=== PATIENT | female | born 1940 | race Caucasian/White ===

== ENCOUNTER → 2017-02-03 | Outpatient (CLI) | payer MEDICARE, OTHER ==
[2016-02-20 18:35] VITALS: BP 149/84
[~2017-02-03] MED LIST: FEXO180T81 PO; GABA-585 PO; MELO-156 PO; TIZA4CAP3 PO
== END | disposition home or self-care (01) ==
LOC: LAB 04:32
PROVIDERS: ATTEND Family Medicine
DX: E78.5 Hyperlipidemia, unspecified (principal)
CPT/HCPCS: 80061

== ENCOUNTER 2017-06-05 13:57 | Emergency (ER) | payer MEDICARE, OTHER ==
[~2017-06-05 13:57] MED LIST changes: -MELO-156 PO; +MELO7.5T29 PO
[2017-06-05 14:00] VITALS: BP 146/76
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
[2017-06-05] MEDS ORDERED: HYDROcodone/APAP 5/325MG 1 TAB TABLET PO ONE (15:30)
--- NOTE | 2017-06-05 16:08 | RAD ---
Indication: Left shoulder and left upper humerus pain, status post fall. Axial imaging through the left shoulder was performed without contrast. Sagittal and coronal reformations were also performed. One or more of the following individualized dose reduction techniques were utilized for this examination: 1. Automated exposure control 2. Adjustment of the mA and/or kV according to patient size 3. Use of iterative reconstruction technique There is an acute appearing fracture involving the proximal left humerus. There appears to be some impaction at the fracture site near the junction of the head and neck. Humeral head appears to maintain normal alignment with the glenoid. Glenoid is intact. Coracoid is unremarkable. Acromioclavicular alignment is maintained. The clavicle appears intact. IMPRESSION: Mildly impacted proximal humerus fracture. Electronically signed by: Ramon Mujica MD (06/05/2017 4:05 PM) [facility] [place]
--- NOTE | 2017-06-06 08:25 | RAD ---
Left elbow one view. History: Pain Single view was taken of the left elbow. The head of the radius does not line up with the capitate consistent with a radius dislocation. The ulna appears to line up normally with the distal humerus. Additional views could be of benefit. Impression: 1. Dislocation of the radial head at the elbow.
== END 2017-06-05 17:01 | disposition home or self-care (01) ==
LOC: ER 13:57
DX: S42.202A Unspecified fracture of upper end of left humerus, initial encounter for closed fracture (principal); Z88.2 Allergy status to sulfonamides; Z88.0 Allergy status to penicillin; V29.9XXA Motorcycle rider (driver) (passenger) injured in unspecified traffic accident, initial encounter; Y93.89 Activity, other specified; Y99.8 Other external cause status; Y92.89 Other specified places as the place of occurrence of the external cause
CPT/HCPCS: 73030; 73060; 73070; 73200; 99284-25

== ENCOUNTER 2017-06-17 09:09 | Inpatient (IN) | payer MEDICARE, OTHER ==
[~2017-06-17] VITALS: Ht 157.5 cm; Wt 114.5 kg
--- NOTE | 2017-06-17 09:37 | PHYS DOC ---
Past History Past Medical History: No Pertinent History Past Surgical History: No Surgical History Alcohol Use: Rarely Drug Use: None Adult General Chief Complaint Chief Complaint: COUGH HPI HPI 76-year-old female presenting to the emergency department today with a cough started approximately 3 or 4 days ago. She describes sputum production of yellow and green which she states is changing to white/clear. She denies fevers at home or chills. She has a history of a CVA and humeral fracture. She denies any recent hospitalization or surgery. location lungs. duration intermittent. no alleviating or exacerbating factors. Review of systems is negative for chest pain abdominal pain nausea vomiting. All other review of systems is negative unless otherwise noted in history of present illness. ED course: 76-year-old female presenting to the emergency department with a productive cough. Triage vital signs show the patient to be hypoxic in the mid 80s. The patient is placed on 2 L nasal cannula. Clinical presentation suggestive of a pneumonia. The patient was given IV antibiotics and admitted to the hospital for pneumonia treatment. Review of Systems Review of Systems SEE ABOVE. Allergies Allergies Allergies Coded Allergies Type Severity Reaction Last Updated Verified Penicillins Allergy Intermediate 06/05/17 Yes Sulfa (Sulfonamide Antibiotics) Allergy Intermediate 06/05/17 Yes Physical Exam Physical Exam Constitutional: Well developed, well nourished, no acute distress, non-toxic appearance. HENT: Normocephalic, atraumatic, bilateral external ears normal, oropharynx moist, no oral exudates, nose normal. Eyes: PERRLA, EOMI, conjunctiva normal, no discharge. [] Neck: Normal range of motion, no tenderness, supple, no stridor. Cardiovascular:Heart rate regular rhythm, no murmur Lungs & Thorax: Mild wheezing on the right more than left. No crackles. Abdomen: Bowel sounds normal, soft, no tenderness, no masses, no pulsatile masses. [] Skin: Warm, dry, no erythema, no rash. Back: No tenderness, no CVA tenderness. Extremities: No tenderness, no cyanosis, no clubbing, ROM intact, no edema. [] Neurologic: Alert and oriented X 3, normal motor function, normal sensory function, no focal deficits noted. Psychologic: Affect normal, judgement normal, mood normal. [] EKG EKG [] Radiology/Procedures Radiology/Procedures [] Course & Med Decision Making Course & Med Decision Making Pertinent Labs and Imaging studies reviewed. (See chart for details) [] Dragon Disclaimer Dragon Disclaimer This chart was dictated in whole or in part using Voice Recognition software in a busy, high-work load, and often noisy Emergency Department environment. It may contain unintended and wholly unrecognized errors or omissions. Departure Departure: Impression: Primary Impression: Productive cough Additional Impression: Pneumonia Disposition: 09 ADMITTED INPATIENT Admitting Physician: Judith Bee Condition: STABLE Referrals: PCP,UNKNOWN (PCP) Problem Qualifiers IRVING HOLT MD Jun 17, 2017 09:37
[2017-06-17 09:53] LABS: BASO # 0.1 x10^3/uL (0.0-0.2); BASO % 1 % (0-3); EOS # 0.1 x10^3/uL (0.0-0.7); EOS % 1 % (0-3); HEMATOCRIT 37.7 % (36.0-47.0); HEMOGLOBIN 12.6 g/dL (12.0-15.5); LYMPH # 1.1 x10^3/uL (1.0-4.8); LYMPH % 8 % (24-48); MEAN CORPUSCULAR HEMOGLOBIN 29 pg (25-35); MEAN CORPUSCULAR HGB CONC 33 g/dL (31-37); MEAN CORPUSCULAR VOLUME 86 fL (79-100); MONO # 1.2 x10^3/uL (0.0-1.1); MONO % 9 % (0-9); NEUT # 10.8 x10^3uL (1.8-7.7); NEUT % 82 % (31-73); PLATELET COUNT 193 x10^3/uL (140-400); RED BLOOD COUNT 4.37 x10^6/uL (3.50-5.40); RED CELL DISTRIBUTION WIDTH 14.2 % (11.5-14.5); WHITE BLOOD COUNT 13.2 x10^3/uL (4.0-11.0)
--- NOTE | 2017-06-17 09:57 | RAD ---
Portable chest, 06/17/2017: History: Cough Comparison is made to a study from 06/26/2015. The heart is at the upper limits of normal in size. Moderate patchy pulmonary infiltrates have developed, predominantly in the right upper lobe and both lung bases. The pulmonary vascularity appears to be within normal limits. There is no evidence of pleural fluid. Postsurgical changes are again noted in the lower cervical spine and at the right shoulder. IMPRESSION: Patchy bilateral pulmonary infiltrates have developed suggesting pneumonia.
[2017-06-17] MEDS ORDERED: MORPHINE SULFATE 2 MG/ML DISP.SYRIN. IV PRN (10:00)
[2017-06-17] MEDS ORDERED: IPRATRPIUM/ALBUTEROL 0.5/2.5MG 3 ML NEBU. NEB ONE (10:00)
[2017-06-17] MEDS ORDERED: ONDANSETRON PF 4 MG/2 ML VIAL. IV PRN (10:00)
[2017-06-17 10:07] LABS: ALBUMIN 2.7 g/dL (3.4-5.0); CALCIUM 8.9 mg/dL (8.5-10.1); CREATININE 0.9 mg/dL (0.6-1.0); DIRECT BILIRUBIN 0.9 mg/dL (0.0-0.2); GFR 60.6; POTASSIUM 3.5 mmol/L (3.5-5.1); TOTAL BILIRUBIN 1.6 mg/dL (0.2-1.0); TOTAL PROTEIN 7.2 g/dL (6.4-8.2)
[2017-06-17] MEDS ORDERED: IV NORMAL SALINE 500ML 500 ML IV ONE (10:15)
[2017-06-17 11:00] VITALS: BP 141/88
[2017-06-17] MEDS ORDERED: TIZA4TAB PO (12:35)
[2017-06-17] MEDS ORDERED: ASPI-612 PO (12:35)
[2017-06-17] MEDS ORDERED: IBUP400T18 PO (12:35)
[2017-06-17] MEDS ORDERED: PRAV20TA PO (12:35)
[2017-06-17] MEDS ORDERED: GUAI237L83 PO (12:35)
[2017-06-17] MEDS ORDERED: TRAZ50TA15 PO (12:35)
[2017-06-17] MEDS ORDERED: GUAI600T47 PO (12:35)
[2017-06-17] MEDS ORDERED: ACET-704 PO (12:35)
[2017-06-17] MEDS ORDERED: HYDR-971 PO (12:35)
[2017-06-17] MEDS ORDERED: TOLN113. TP (12:35)
[2017-06-17] MEDS ORDERED: FAMO-63 PO (12:35)
[2017-06-17] MEDS ORDERED: [UNRECOGNIZED DRUG - CODE] TP (12:35)
[2017-06-17] MEDS ORDERED: IBUP800T19 PO (12:35)
[2017-06-17] MEDS ORDERED: HYDR-2762 PO (12:35)
[2017-06-17] MEDS ORDERED: DOCU100C28 PO (12:35)
[2017-06-17] MEDS ORDERED: MELA3TAB2 PO (12:35)
[2017-06-17 13:25] LABS: BILIRUBIN,URINE NEG (NEG); CLARITY,URINE HAZY; COLOR,URINE AMBER; GLUCOSE,URINE NEG (NEG); NITRITE,URINE NEG (NEG); UROBILINOGEN,URINE 1 mg/dL (0.2 mg/dL)
[2017-06-17 13:26] LABS: BACTERIA,URINE FEW /HPF (0-FEW); SQUAMOUS EPITHELIAL CELL,UR FEW /LPF
[2017-06-17] MEDS: IPRATRPIUM/ALBUTEROL 0.5/2.5MG 3 ML NEBU. NEB SCH ×3 (13:45→20:44)
[2017-06-17] MEDS ORDERED: ENOXAPARIN 30 MG/0.3 ML DISP.SYRIN. SQ SCH (14:00)
[2017-06-17] MEDS: guaiFENesin DM 600/30MG 1 TAB TAB.ER.12H PO SCH ×2 (14:30→21:11)
[2017-06-17 15:47] VITALS: BP 157/78
[2017-06-17] MEDS: LIDOCAINE (700MG/PATCH) PATCH. TD SCH (17:54)
[2017-06-17] MEDS ORDERED: IBUPROFEN 800 MG TABLET. PO PRN (19:15)
[2017-06-17] MEDS ORDERED: tiZANidine 4 MG TABLET. PO PRN (19:15)
[2017-06-17] MEDS ORDERED: IBUPROFEN 400 MG TABLET. PO PRN (19:15)
[2017-06-17] MEDS ORDERED: TOLNAFTATE 1% TOPICAL SPRAY POWDER 133GM CAN. TP PRN (19:15)
[2017-06-17] MEDS ORDERED: HYDROcodone/APAP 5/325MG 1 TAB TABLET PO PRN ×2 (19:15)
[2017-06-17] MEDS ORDERED: METHYL SALICYLATE/MENTHOL TOPICAL OINTMENT 29GM TUBE. TP PRN (19:45)
[2017-06-17] MEDS ORDERED: guaiFENesin DM 200MG/20MG 10 ML SYRUP PO PRN (19:45)
[2017-06-17] MEDS ORDERED: HYDROcodone/APAP 7.5/325MG 1 TAB TABLET PO SCH (20:00)
[2017-06-17 21:10] VITALS: BP 135/76
[2017-06-17] MEDS: MELATONIN 3 MG TABLET PO SCH (21:11)
[2017-06-17] MEDS: traZODone 50 MG TABLET. PO SCH (21:11)
[2017-06-17] MEDS: PRAVASTATIN 20 MG TABLET. PO SCH (21:12)
[2017-06-17] MEDS: ACETAMINOPHEN/CODEINE 300/30MG TABLET PO PRN (21:30)
[2017-06-18 00:02] VITALS: BP 126/62
--- NOTE | 2017-06-18 00:13 | ACF ---
Admission Criteria Forms PNEUMONIA, COMMUNITY ACQUIRED Clinical Indications for Admission to Inpatient Care (Place 'X' for any and all applicable criteria): Admission to inpatient status for two midnights or more is indicated for ANY ONE of the following (1)(2)(3): [ ]I. Hypoxia [ ]II. Hemodynamic instability [ ]III. Altered mental status that is severe or persistent [ ]IV. Dehydration that is severe or persistent. [ ]V. Bacteremia [ ]. Moderate-risk or high-risk category patients (Pneumonia Severity Index ( PSI) class IV or V, or CURB-65 score of 3 or greater). [ ]VII. Intermediate-risk category patients (e.g., PSI class III or CURB-65 score 2) who do not improve with outpatient and observation care treatment [ ]VIII. Outpatient treatment failure as indicated by 1 or more of the following(9): [ ]a) Failure to respond to antibiotic (eg, resistant organism) [ ]b) Clinically significant adverse effects from medication (eg, vomiting) [ ]c) Complications of pneumonia (eg, empyema, bacteremia) [ ]d) Significant worsening of comorbid cond necessitating inpatient care (eg, chronic heart failure) [x]IX. Appropriate diagnostic testing and treatment unavailable in outpatient or recovery facility (eg, testing or infection control measures unavailable) [ ]X. Respiratory finding (eg. tachypnea) that do not respond to outpatient observation care treatment [ ]XI. Complicated pleural effusions (eg, emphysema, exudative, loculated) [ ]XII. Immunocompromised patients (e.g., AIDS, chronic steroid use) at moderate or high risk based on clinical evaluation. Extended stay beyond goal length of stay may be needed for (20) [ ]a) Unclear diagnosis [ ]b) Pleural disease [ ]c) Severe pneumonia or treatment failure [ ]d) Respiratory failure [ ]e) New onset hyponatremia (serum Na concentration less than 135 mEq/L(mmol/ L) [ ]f) Clinically significant comorbid illness (eg, heart failure, atrial fibrillation with rapid heart rate, alcohol withdrawal, renal insufficiency)(34)(35) [ ]g) Comorbid acute exacerbation of COPD(36) [ ]h) Concomitant diagnosis of malignancy [ ]i) Concomitant altered mental status [ ]j) Culture-identified Gram-negative or antibiotic-resistant organism (eg, Pseudomonas, methicillin-resistant Staphylococcus aureus MRSA)(30) [ ]k) Healthcare-associated pneumonia (36) The original [facility] content created by [facility] has been revised. The portions of the content which have been revised are identified through the use of italic text, and [facility] has neither reviewed nor approved the modified material. All other unmodified content is copyright [facility]. Please see references footnoted in the original [facility] edition 2015 Admission Criteria Met?: Yes KVNG LILLY Jun 18, 2017 00:13
[2017-06-18 05:23] VITALS: BP 140/67
[2017-06-18] MEDS: IPRATRPIUM/ALBUTEROL 0.5/2.5MG 3 ML NEBU. NEB SCH ×4 (05:24→20:34)
[2017-06-18 06:03] LABS: BASO # 0.1 x10^3/uL (0.0-0.2); BASO % 1 % (0-3); EOS # 0.1 x10^3/uL (0.0-0.7); EOS % 1 % (0-3); HEMATOCRIT 36.4 % (36.0-47.0); LYMPH # 1.4 x10^3/uL (1.0-4.8); LYMPH % 13 % (24-48); MEAN CORPUSCULAR HEMOGLOBIN 28 pg (25-35); MEAN CORPUSCULAR HGB CONC 33 g/dL (31-37); MEAN CORPUSCULAR VOLUME 86 fL (79-100); MONO % 9 % (0-9); NEUT # 8.8 x10^3uL (1.8-7.7); NEUT % 77 % (31-73); PLATELET COUNT 202 x10^3/uL (140-400); RED BLOOD COUNT 4.24 x10^6/uL (3.50-5.40); RED CELL DISTRIBUTION WIDTH 13.9 % (11.5-14.5); WHITE BLOOD COUNT 11.4 x10^3/uL (4.0-11.0)
[2017-06-18 06:16] LABS: CALCIUM 8.6 mg/dL (8.5-10.1); CREATININE 0.8 mg/dL (0.6-1.0); GFR 69.4; POTASSIUM 3.3 mmol/L (3.5-5.1)
[2017-06-18] MEDS: ACETAMINOPHEN/CODEINE 300/30MG TABLET PO PRN ×3 (06:25→21:21)
[2017-06-18] MEDS ORDERED: POTASSIUM CHLORIDE 20 MEQ TABLET.ER. PO ONE (06:45)
[2017-06-18] MEDS: LIDOCAINE (700MG/PATCH) PATCH. TD SCH (08:38)
[2017-06-18] MEDS: ASPIRIN ENTERIC COATED 81 MG TABLET.DR. PO SCH (08:39)
[2017-06-18] MEDS: guaiFENesin DM 600/30MG 1 TAB TAB.ER.12H PO SCH ×2 (08:39→21:20)
[2017-06-18] MEDS: FAMOTIDINE 20 MG TABLET PO SCH (08:39)
[2017-06-18 11:03] VITALS: BP 122/80
--- NOTE | 2017-06-18 12:28 | HP ---
ADMIT DATE: 06/17/2017 REASON FOR ADMISSION: Cough and pneumonia. 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 She presented to the Emergency Room complaining of a 5 to 7 day history of cough. She was [facility] to [facility] and was sent over to the hospital. She reports green sputum production and continue problem with cough. Does not know if she has had fever. PAST MEDICAL HISTORY: She has a history of a right humeral fracture, currently has a left, I believe scapular fracture, morbid obesity, hyperlipidemia, and history of CVA. ALLERGIES: PENICILLIN and SULFA. MEDICATIONS: Reviewed and are available on the MAR. 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 She quit smoking 20 years ago. No alcohol. REVIEW OF SYSTEMS: Positive for shortness of breath with exertion, difficulty ambulating, cough, right-sided pain, denies chest pain, sore throat, does not feel feverish. OBJECTIVE: VITAL SIGNS: T-max yesterday was 101.1, blood pressure 157/78, pulse 88, respirations 20, pulse ox 95% on 2 liters. Height 62 inches, weight 250 pounds with a BMI of 45. GENERAL: A 76-year-old in moderate distress. Her color is pale. Her throat with postnasal drip. She has congestion. NECK: Supple. LUNGS: With diffuse wheezes. She has a severe cough producing green sputum. CARDIOVASCULAR: Regular rhythm and rate. ABDOMEN: Soft, nontender, and obese. EXTREMITIES: Without edema. MUSCULOSKELETAL: Right-sided rib tenderness, also has the left arm in a brace. Gait unsteady. LABORATORY DATA: White blood cell count 13.2, 82% neutrophils, no bands. Chemistry: Bilirubin was slightly elevated at 1.6, direct bilirubin 0.9, slightly elevated AST and alkaline phosphatase is 201. BMP slightly elevated at 691. Albumin 2.7. Urinalysis, 1-4 white cells. MRSA screen is negative. Chest x-ray, bilateral pulmonary infiltrates. ASSESSMENT: 1. Bilateral pneumonia. 2. Sepsis with pneumonia. 3. Fever. 4. Morbid obesity. 5. Impaired mobility. 6. Right-sided rib pain. 7. Hyperlipidemia. 8. Elevated bilirubin, questionable etiology. PLAN: IV antibiotics, cough medicine, breathing treatments, PT, OT. AKRINE AMADO DO DR: [place] JOB#: [id number] / [id number]
[2017-06-18] MEDS: ENOXAPARIN 40 MG/0.4 ML DISP.SYRIN. SQ SCH (13:52)
[2017-06-18] MEDS ORDERED: METHYL SALICYLATE/MENTHOL TOPICAL OINTMENT 29GM TUBE. TP PRN (14:41)
[2017-06-18 15:40] VITALS: BP 139/61
[2017-06-18 19:51] VITALS: BP 180/78
[2017-06-18] MEDS: MELATONIN 3 MG TABLET PO SCH (21:21)
[2017-06-18] MEDS: PRAVASTATIN 20 MG TABLET. PO SCH (21:21)
[2017-06-18] MEDS: traZODone 50 MG TABLET. PO SCH (21:21)
--- NOTE | 2017-06-18 23:29 | PN ---
DATE: 06/18/2017 SUBJECTIVE: A 76-year-old female who was admitted with bilateral pneumonia with sepsis and pain management. She is actually a little bit better today. She is sitting up in the chair, eating her breakfast and overall breathing better, still has a bad cough, but doing better. OBJECTIVE: VITAL SIGNS: Blood pressure 122/80, respirations 20, pulse 66, temperature 98.2, pulse ox 94% on room air. She did have a temperature spike yesterday afternoon of 101.1. GENERAL: Color is better, still pale. NECK: Supple. LUNGS: With better air movement and pretty much clear to auscultation. CARDIOVASCULAR: Regular rhythm and rate. ABDOMEN: Soft, nontender. EXTREMITIES: Without edema. LABORATORY DATA: White count 11.2, potassium 3.3 today. PLAN: Replace potassium. Continue IV antibiotics, PT, OT orders. KARINE AMADO DO DR: RADHA/carmen JOB#: [id number] / [id number]
[2017-06-19] MEDS: HYDROcodone/CHLORPHEN POLIS 5 ML SUS.ER.12H PO PRN (00:49)
[2017-06-19 05:20] VITALS: BP 129/75
[2017-06-19] MEDS: IPRATRPIUM/ALBUTEROL 0.5/2.5MG 3 ML NEBU. NEB SCH ×4 (05:48→20:43)
[2017-06-19 06:12] LABS: BASO # 0.1 x10^3/uL (0.0-0.2); BASO % 1 % (0-3); EOS # 0.2 x10^3/uL (0.0-0.7); EOS % 2 % (0-3); HEMATOCRIT 34.4 % (36.0-47.0); HEMOGLOBIN 11.6 g/dL (12.0-15.5); LYMPH # 1.4 x10^3/uL (1.0-4.8); LYMPH % 14 % (24-48); MEAN CORPUSCULAR HEMOGLOBIN 29 pg (25-35); MEAN CORPUSCULAR HGB CONC 34 g/dL (31-37); MEAN CORPUSCULAR VOLUME 86 fL (79-100); MONO # 0.9 x10^3/uL (0.0-1.1); MONO % 9 % (0-9); NEUT # 7.4 x10^3uL (1.8-7.7); NEUT % 74 % (31-73); PLATELET COUNT 205 x10^3/uL (140-400); RED BLOOD COUNT 3.99 x10^6/uL (3.50-5.40); RED CELL DISTRIBUTION WIDTH 14.5 % (11.5-14.5)
[2017-06-19 06:23] LABS: ALBUMIN 2.2 g/dL (3.4-5.0); ALBUMIN/GLOBULIN RATIO 0.6 (1.0-1.7); CALCIUM 8.5 mg/dL (8.5-10.1); CREATININE 0.8 mg/dL (0.6-1.0); GFR 69.4; POTASSIUM 3.5 mmol/L (3.5-5.1); TOTAL BILIRUBIN 0.8 mg/dL (0.2-1.0); TOTAL PROTEIN 6.2 g/dL (6.4-8.2)
[2017-06-19] MEDS: ACETAMINOPHEN/CODEINE 300/30MG TABLET PO PRN ×3 (07:33→20:28)
--- NOTE | 2017-06-19 08:31 | RAD ---
Portable AP upright view CXR: Clinical indications: Follow-up of pneumonia. Chest pain. Comparison: June 17, 2017. Findings: Again seen is a consolidative round lung infiltrate within the right upper lobe which is stable. Right lung base infiltrate or atelectasis seen previously has resolved. Left lung base and left midlung zone infiltrate are stable. There is mild blunting of the right costophrenic angle consistent with a small pleural effusion which is stable. No pneumothorax is evident. The heart size and mediastinum and pulmonary vasculature are stable. Impression: Bilateral lung infiltrates..
[2017-06-19] MEDS: LIDOCAINE (700MG/PATCH) PATCH. TD SCH (09:00)
[2017-06-19] MEDS: ASPIRIN ENTERIC COATED 81 MG TABLET.DR. PO SCH (09:46)
[2017-06-19] MEDS: guaiFENesin DM 600/30MG 1 TAB TAB.ER.12H PO SCH ×2 (09:46→20:28)
[2017-06-19] MEDS: FAMOTIDINE 20 MG TABLET PO SCH (09:46)
[2017-06-19 11:14] VITALS: BP 124/63
[2017-06-19] MEDS ORDERED: POTASSIUM CHLORIDE 20 MEQ TABLET.ER. PO ONE (12:10)
[2017-06-19] MEDS: ENOXAPARIN 40 MG/0.4 ML DISP.SYRIN. SQ SCH (14:48)
[2017-06-19 15:04] VITALS: BP 112/83
[2017-06-19] MEDS: tiZANidine 4 MG TABLET. PO PRN (17:55)
--- NOTE | 2017-06-19 18:34 | PN ---
DATE: 06/19/2017 PROBLEMS: 1. Bilateral pneumonia, improving. 2. Sepsis with pneumonia. 3. Fever, resolved. 4. Morbid obesity. 5. Hypokalemia. 6. Impaired mobility. 7. Transaminitis. 8. DVT prophylaxis. 9. Elevated bilirubin, which has resolved. 10. Right-sided rib pain, improving. 11. Severe protein malnutrition. SUBJECTIVE: A 76-year-old female admitted for fever and found to have pneumonia and being treated for the above problems. This also would include left scapular fracture and severe impaired mobility. She is actually doing better today. Cough is less wet, producing less sputum. Gram stain was positive for gram-positive cocci and gram-negative cocci. She is still mildly hypoxic, but has been able to get her sats up to 97% on 2 liters, but then we will go down at 92. OBJECTIVE: VITAL SIGNS: Temperature 98.5, pulse 80, respirations 20, blood pressure 129/75, pulse ox 97% on 2 liters. GENERAL: Color has improved. She is less labored in her breathing. HEENT: Tongue was moist. NECK: Supple. LUNGS: With still congested sounds and some wheezing. CARDIOVASCULAR: Regular rhythm and rate. EXTREMITIES: With a little bit about 1+ edema. She is up 2 pounds. LABORATORY DATA: CBC: White count is down to normal. She has slight transaminitis, albumin is 2.2. PLAN: We will add some liquid nutrition and will move towards discharge. KARINE AMADO DO DR: RADHA/carmen JOB#: [id number] / [id number]
[2017-06-19] MEDS: traZODone 50 MG TABLET. PO SCH (20:27)
[2017-06-19] MEDS: MELATONIN 3 MG TABLET PO SCH (20:28)
[2017-06-19] MEDS: PRAVASTATIN 20 MG TABLET. PO SCH (20:28)
[2017-06-19 20:32] VITALS: BP 100/60
[2017-06-20] MEDS: HYDROcodone/CHLORPHEN POLIS 5 ML SUS.ER.12H PO PRN ×2 (02:18→14:20)
[2017-06-20 03:23] VITALS: BP 102/54
[2017-06-20] MEDS: IPRATRPIUM/ALBUTEROL 0.5/2.5MG 3 ML NEBU. NEB SCH ×4 (05:25→20:44)
[2017-06-20] MEDS: FAMOTIDINE 20 MG TABLET PO SCH (07:59)
[2017-06-20] MEDS: guaiFENesin DM 600/30MG 1 TAB TAB.ER.12H PO SCH ×2 (07:59→20:08)
[2017-06-20] MEDS: ASPIRIN ENTERIC COATED 81 MG TABLET.DR. PO SCH (07:59)
[2017-06-20] MEDS: ACETAMINOPHEN/CODEINE 300/30MG TABLET PO PRN ×2 (08:00→20:09)
[2017-06-20] MEDS: LIDOCAINE (700MG/PATCH) PATCH. TD SCH ×2 (08:02→12:05)
[2017-06-20 09:00] VITALS: BP 140/107
[2017-06-20 11:16] VITALS: BP 121/69
[2017-06-20] MEDS ORDERED: LIDOCAINE 5% TOPICAL OINTMENT 35GM TUBE. TP ONE (12:15)
[2017-06-20] MEDS ORDERED: LIDOCAINE (700MG/PATCH) PATCH. TD ONE (12:30)
[2017-06-20 13:32] LABS: BASO # 0.1 x10^3/uL (0.0-0.2); BASO % 1 % (0-3); EOS # 0.2 x10^3/uL (0.0-0.7); EOS % 2 % (0-3); HEMATOCRIT 38.2 % (36.0-47.0); HEMOGLOBIN 12.7 g/dL (12.0-15.5); LYMPH # 1.2 x10^3/uL (1.0-4.8); LYMPH % 12 % (24-48); MEAN CORPUSCULAR HEMOGLOBIN 29 pg (25-35); MEAN CORPUSCULAR HGB CONC 33 g/dL (31-37); MEAN CORPUSCULAR VOLUME 87 fL (79-100); MONO # 0.7 x10^3/uL (0.0-1.1); MONO % 7 % (0-9); NEUT # 7.9 x10^3uL (1.8-7.7); NEUT % 78 % (31-73); PLATELET COUNT 241 x10^3/uL (140-400); RED BLOOD COUNT 4.37 x10^6/uL (3.50-5.40); WHITE BLOOD COUNT 10.1 x10^3/uL (4.0-11.0)
[2017-06-20 13:40] LABS: ALBUMIN 2.4 g/dL (3.4-5.0); ALBUMIN/GLOBULIN RATIO 0.5 (1.0-1.7); CALCIUM 8.7 mg/dL (8.5-10.1); CREATININE 0.9 mg/dL (0.6-1.0); GFR 60.6; MAGNESIUM 1.9 mg/dL (1.8-2.4); POTASSIUM 3.7 mmol/L (3.5-5.1); TOTAL BILIRUBIN 0.6 mg/dL (0.2-1.0); TOTAL PROTEIN 6.9 g/dL (6.4-8.2)
[2017-06-20] MEDS: ENOXAPARIN 40 MG/0.4 ML DISP.SYRIN. SQ SCH (14:20)
[2017-06-20 14:51] VITALS: BP 172/74
[2017-06-20 19:54] VITALS: BP 130/58
[2017-06-20] MEDS: traZODone 50 MG TABLET. PO SCH (20:08)
[2017-06-20] MEDS: MELATONIN 3 MG TABLET PO SCH (20:09)
[2017-06-20] MEDS: DOCUSATE SODIUM 100 MG CAPSULE PO PRN (20:09)
[2017-06-20] MEDS: PRAVASTATIN 20 MG TABLET. PO SCH (20:09)
--- NOTE | 2017-06-20 22:08 | PN ---
DATE: 06/20/2017 PROBLEMS: 1. Bilateral pneumonia. 2. Sepsis with pneumonia. 3. Fever, resolved. 4. Morbid obesity. 5. Hypokalemia. 6. Impaired mobility. 7. Transaminitis. 8. DVT prophylaxis. 9. Elevated bilirubin, which has resolved. 10. Right-sided rib tip pain continues. 11. Severe protein malnutrition. OBJECTIVE: A little bit better today, but has a long way to go. She does not want to be discharged back to . Actually, she lives on the wellness side. She really does not want to go to rehabilitation, but I cannot see that she would be able to go back to independent living at this point. She is getting up and ambulating to the bathroom. She has a hard time because of the left broken scapular or shoulder. I am not sure what exactly she had broken, but she is still in a sling. OBJECTIVE: VITAL SIGNS: Blood pressure 121/69, respirations 20, pulse 84, temperature 97, O2 sat is 92% on 2 liters. She has been as high as 97% on 2 liters yesterday evening. GENERAL: Color is still pale, but she is at rest in no distress. HEENT: Her tongue was moist. LUNGS: Moving air better some crackles on the left lower lobe. CARDIOVASCULAR: Regular rhythm and rate. draw furnace tender on the right side. EXTREMITIES: With 2-3+ edema. This is chronic. Weight is up about 3 pounds. LABORATORY DATA: Pending. PLAN: Continue antibiotics. Recheck chest x-ray tomorrow. Try to discharge tomorrow, will need rehabilitation. KARINE AMADO DO DR: RADHA/carmen JOB#: [id number] / [id number]
[2017-06-20 23:30] VITALS: BP 128/69
[2017-06-21] MEDS: IPRATRPIUM/ALBUTEROL 0.5/2.5MG 3 ML NEBU. NEB SCH ×4 (05:38→20:19)
[2017-06-21] MEDS: ACETAMINOPHEN/CODEINE 300/30MG TABLET PO PRN ×2 (05:44→17:29)
[2017-06-21 05:48] VITALS: BP 122/61
[2017-06-21] MEDS: tiZANidine 4 MG TABLET. PO PRN ×2 (06:03→17:41)
[2017-06-21 06:25] LABS: BASO # 0.1 x10^3/uL (0.0-0.2); BASO % 1 % (0-3); EOS # 0.3 x10^3/uL (0.0-0.7); EOS % 3 % (0-3); HEMATOCRIT 35.8 % (36.0-47.0); LYMPH # 1.6 x10^3/uL (1.0-4.8); LYMPH % 17 % (24-48); MEAN CORPUSCULAR HEMOGLOBIN 29 pg (25-35); MEAN CORPUSCULAR HGB CONC 34 g/dL (31-37); MEAN CORPUSCULAR VOLUME 87 fL (79-100); MONO # 0.8 x10^3/uL (0.0-1.1); MONO % 9 % (0-9); NEUT # 6.2 x10^3uL (1.8-7.7); NEUT % 70 % (31-73); PLATELET COUNT 229 x10^3/uL (140-400); RED BLOOD COUNT 4.14 x10^6/uL (3.50-5.40); RED CELL DISTRIBUTION WIDTH 14.5 % (11.5-14.5); WHITE BLOOD COUNT 8.9 x10^3/uL (4.0-11.0)
[2017-06-21 06:26] LABS: CALCIUM 8.3 mg/dL (8.5-10.1); CREATININE 0.7 mg/dL (0.6-1.0); GFR 80.7; POTASSIUM 3.6 mmol/L (3.5-5.1)
[2017-06-21] MEDS: ASPIRIN ENTERIC COATED 81 MG TABLET.DR. PO SCH (08:59)
[2017-06-21] MEDS: FAMOTIDINE 20 MG TABLET PO SCH (08:59)
[2017-06-21] MEDS: guaiFENesin DM 600/30MG 1 TAB TAB.ER.12H PO SCH ×2 (08:59→20:38)
[2017-06-21] MEDS: LIDOCAINE (700MG/PATCH) PATCH. TD SCH (09:03)
[2017-06-21 11:27] VITALS: BP 122/88
[2017-06-21] MEDS: BACITRACIN TOPICAL OINT 28GM TUBE. TP SCH ×2 (12:00→21:00)
[2017-06-21 15:00] VITALS: BP 134/78
[2017-06-21] MEDS: ENOXAPARIN 40 MG/0.4 ML DISP.SYRIN. SQ SCH (17:28)
[2017-06-21 19:10] VITALS: BP 106/64
[2017-06-21] MEDS: PRAVASTATIN 20 MG TABLET. PO SCH (20:38)
[2017-06-21] MEDS: traZODone 50 MG TABLET. PO SCH (20:38)
[2017-06-21] MEDS: MELATONIN 3 MG TABLET PO SCH (20:38)
[2017-06-21 22:01] VITALS: BP 106/64
--- NOTE | 2017-06-21 23:33 | PN ---
DATE: 06/21/2017 SUBJECTIVE: The patient is sitting comfortably in her recliner, complaining of severe left-sided chest pain that is stabbing in nature, worse by coughing and taking deep breath. She was admitted from House with recurrent bouts of cough that has been going on for the last 5 or 7 days. She has also greenish sputum and was evaluated and was found to have bilateral lung infiltrate and was started on IV Levaquin. She apparently has had right middle cerebral artery territory infarct with left-sided hemiplegia and she fell about 2 weeks ago and broke her right humerus for which she is on a sling. Apparently, she saw and the plan was to treat this fracture conservatively without any surgical intervention. PHYSICAL EXAMINATION: GENERAL: When I saw her today, she looked well and was clearly in no apparent respiratory distress, pale, but no jaundice, cyanosis or thyromegaly. No jugular venous distention. No limb edema. VITAL SIGNS: Her heart rate was 62, blood pressure was 122/88, temperature was 97.6, respiratory rate was 16 and oxygen saturation was 100% on 2 liters of oxygen. HEAD, EYES, EARS, NOSE AND THROAT: Showed normocephalic, atraumatic. NECK: Supple. HEART: Showed normal first and second heart sounds with no gallop, rub or murmur. CHEST: Clear to auscultation. No crepitation or rhonchi. ABDOMEN: Distended, soft, nontender. No guarding or rigidity. No organomegaly. All hernial orifices are intact. Bowel sounds are normal. NEUROLOGIC: She was awake, alert, responding appropriately. All cranial nerves are intact. She has left-sided hemiplegia. She has also left humeral fracture and her left upper extremity is in a sling. She walks with a dry wood cane. LABORATORY DATA: Her lab work this morning showed that her white cell count is down to 8900, hemoglobin 12, hematocrit 36, MCV 87 and platelet count 229,000. Her chemistry showed a serum sodium 141, potassium 2.6, chloride 104, bicarbonate 33, anion gap of 4, BUN 16, creatinine 0.7, estimated GFR was 80 mL per minute. Her glucose was 123, calcium was 8.3, magnesium 2. Her AST, ALT, and alkaline phosphatase are all elevated. Her total protein was 6.9, albumin was 2.4. Urinalysis was essentially unremarkable. Her nasal screen for MRSA PCR was negative. ASSESSMENT: 1. Bilateral lung infiltrates. 2. Sepsis with fever that has resolved. 3. Morbid obesity. 4. Impaired mobility. 5. Right-sided rib fracture. 6. New onset left-sided rib fracture. PLAN: My plan is to do the left-sided rib views and continue with IV antibiotic. She will be discharged back to continue the antibiotic orally and to start the process of physical and occupational therapy. MONAE GUTIERREZ MD DR: GÉNESIS/carmen JOB#: [id number] / [id number]
[2017-06-22] MEDS: tiZANidine 4 MG TABLET. PO PRN (00:33)
[2017-06-22 00:36] VITALS: BP 119/82
[2017-06-22] MEDS: ACETAMINOPHEN/CODEINE 300/30MG TABLET PO PRN (01:11)
[2017-06-22] MEDS: IPRATRPIUM/ALBUTEROL 0.5/2.5MG 3 ML NEBU. NEB SCH ×2 (05:28→11:35)
[2017-06-22 05:57] VITALS: BP 112/57
[2017-06-22 06:07] LABS: ALBUMIN 2.1 g/dL (3.4-5.0); ALBUMIN/GLOBULIN RATIO 0.5 (1.0-1.7); CALCIUM 8.2 mg/dL (8.5-10.1); CREATININE 0.8 mg/dL (0.6-1.0); GFR 69.2; POTASSIUM 3.7 mmol/L (3.5-5.1); TOTAL BILIRUBIN 0.4 mg/dL (0.2-1.0); TOTAL PROTEIN 6.2 g/dL (6.4-8.2)
--- NOTE | 2017-06-22 07:22 | RAD ---
Bilateral RIBS, 06/21/2017: History: Rib pain The images are of suboptimal quality due to the patient's size and difficulties in patient positioning. No rib fracture is identified. Patchy bilateral pulmonary infiltrates are unchanged since 06/19/2017. There is moderate spurring in the spine. IMPRESSION: 1. No acute rib abnormality is detected. 2. Unchanged patchy bilateral pulmonary infiltrates.
[2017-06-22] MEDS: ASPIRIN ENTERIC COATED 81 MG TABLET.DR. PO SCH (08:09)
[2017-06-22] MEDS: FAMOTIDINE 20 MG TABLET PO SCH (08:16)
[2017-06-22] MEDS: guaiFENesin DM 600/30MG 1 TAB TAB.ER.12H PO SCH (08:17)
[2017-06-22] MEDS: LIDOCAINE (700MG/PATCH) PATCH. TD SCH (08:20)
[2017-06-22] MEDS: BACITRACIN TOPICAL OINT 28GM TUBE. TP SCH (08:33)
[2017-06-22] MEDS: DOCUSATE SODIUM 100 MG CAPSULE PO PRN (08:33)
[2017-06-22] MEDS: HYDROcodone/CHLORPHEN POLIS 5 ML SUS.ER.12H PO PRN (10:51)
[2017-06-22] MEDS ORDERED: LEVO500T59 PO (12:52)
[2017-06-22 13:00] VITALS: BP 152/66
--- NOTE | 2017-06-22 14:25 | DS ---
DATE OF DISCHARGE: 06/22/2017 HOSPITAL COURSE: The patient is a 77-year-old female patient who was admitted on 06/17/2017 with cough with pneumonia. X-ray showed that she has bilateral lung infiltrates. She is apparently allergic to PENICILLIN and SULFA DRUGS and was started on Levaquin and she did actually well. She continued to have what seemed to be pleuritic chest pain, especially when she coughs it takes a deep breath; however, clinically she is afebrile, hemodynamically stable. [place] [address]779 to 8900. Has been up and about walking with her cane and a decision was made to discharge her back to the to continue her oral antibiotics and to start the process of physical and occupational therapy. PHYSICAL EXAMINATION: GENERAL: When I saw her today, she was sitting slightly propped up in her chair, in no apparent respiratory distress. She was pale, but no jaundice, cyanosis, or thyromegaly. No jugular venous distention. No limb edema. VITAL SIGNS: Her heart rate was 66, blood pressure 112/57, temperature was 98.7, respiratory rate was 20, and oxygen saturation was 94% on 1 liter of oxygen by nasal cannula. HEAD, EYES, EARS, NOSE AND THROAT: Showed normocephalic, atraumatic. NECK: Supple. HEART: Showed normal first and second sounds. No gallop, rub or murmur. CHEST: Clear to auscultation. No crepitation or rhonchi. ABDOMEN: Distended, soft, nontender. NEUROLOGIC: She is awake, alert, responding appropriately. Cranial nerves intact. She has left-sided hemiplegia and in fact she has left side hemiparesis. EXTREMITIES: She has also fracture of the left humerus and her left upper extremity is in a sling. Her intake over the last 24 hours was 1500, output was 615. LABORATORY DATA: Her most lab work showed a white cell count of 8900, hemoglobin 12, hematocrit 36, MCV 87 and platelet count 229,000 with normal manual differential. As of this morning, her serum sodium was 139, potassium 3.7, chloride 103, bicarbonate 31, and anion gap of 5. BUN 16, creatinine 0.8, estimated GFR was 69 mL per minute. Her glucose 156, calcium was 8.2. Total bilirubin is normal. AST, ALT, alkaline phosphatase were slightly elevated, but trending down. Her total protein was 6.2, albumin 2.1. As far as her sputum culture, did not show any growth. I did order a left-sided rib view, but it showed that although the images of suboptimal in quality due to the patient's size and difficulties in the patient positioning, no rib fracture indentified; patchy and bilateral pulmonary infiltrates are unchanged; there is moderate spurring of the spine. DISCHARGE MEDICATIONS: The patient was discharged back to the custodial facility to complete a course of antibiotic orally. She has already received 5 days of IV Levaquin and she is definitely responding to that. We will continue with 5 more days of oral Levaquin and wants to continue with all other home medications including Tylenol with Codeine 1 tablet every 6 hours, aspirin 81 mg once a day, Colace 100 mg every 8 hours as needed for constipation, famotidine 20 mg tablet daily, Mucinex 600 mg twice a day, guaifenesin/dextromethorphan for Robitussin DM take 2 teaspoons p.o. every 4 hours as needed, ibuprofen 400 mg every 8 hours, melatonin 3 mg at bedtime. She is on pravastatin sodium for Pravachol 20 mg at bedtime, tizanidine for Zanaflex 4 mg every 6 hours and trazodone 50 mg at bedtime. FINAL DISCHARGE DIAGNOSES: Bilateral pneumonia; fever with sepsis, resolved; morbid obesity; bilateral pleuritic pain. There is no evidence of rib fracture. Transaminitis, probably due Levaquin, resolved. Right middle cerebral artery territory infarct with left sided hemiplegia. Left humeral fracture, treated with sling. MONAE GUTIERREZ MD DR: GÉNESIS/carmen JOB#: [id number] / [id number]
== END 2017-06-22 13:49 | DRG 871 ==
LOC: ER 09:09 → 1 SOUTH 09:52
PROVIDERS: ADMIT Family Medicine; ATTEND Family Medicine
PROC: 5A09357 Assistance with Respiratory Ventilation, Less than 24 Consecutive Hours, Continuous Positive Airway Pressure (ICD-10-PCS; principal; 2017-06-17)
DX: A41.9 Sepsis, unspecified organism (principal); J18.9 Pneumonia, unspecified organism; E43 Unspecified severe protein-calorie malnutrition; I63.511 Cerebral infarction due to unspecified occlusion or stenosis of right middle cerebral artery; R17 Unspecified jaundice; G81.94 Hemiplegia, unspecified affecting left nondominant side; Z68.42 Body mass index [BMI] 45.0-49.9, adult; R26.9 Unspecified abnormalities of gait and mobility; R74.0 Nonspecific elevation of levels of transaminase and lactic acid dehydrogenase [LDH]; R09.02 Hypoxemia; E78.5 Hyperlipidemia, unspecified; E66.01 Morbid (severe) obesity due to excess calories; E87.6 Hypokalemia; Z88.0 Allergy status to penicillin; Z88.2 Allergy status to sulfonamides; Z87.891 Personal history of nicotine dependence; Z86.73 Personal history of transient ischemic attack (TIA), and cerebral infarction without residual deficits; Z91.81 History of falling
CPT/HCPCS: 36415; 71010; 71110; 80048; 80053; 80076; 81001; 83605; 83735; 83880; 84484; 85027; 87070; 87205; 87641; 94640; 94760; J1650; J1956; J2270; J7040; J7620; 97110; 97116; 97530; 97535; 99285-25

== ENCOUNTER → 2020-08-30 | Outpatient (CLI) | payer MEDICARE, OTHER ==
[~2020-08-30] MED LIST changes: +ACET-704 PO; +ASPI-889 PO; +DOCU100C28 PO; +FAMO-63 PO; +GUAI237L83 PO; +GUAI600T47 PO; +HYDR-2765 PO; +HYDR-3165 PO; +IBUP400T18 PO; +IBUP800T19 PO; +LEVO500T59 PO; +MELA3TAB4 PO; +PRAV20TA PO; +TIZA4TAB2 PO; +TOLN113. TP; +TRAZ-120 PO; +[UNRECOGNIZED DRUG - CODE] TP
--- NOTE | 2020-08-30 13:52 | RAD ---
SHOULDER 2+V RIGHT DATE: 08/30/2020 12:00 AM INDICATION: Reason: RT SHOULDER PAIN / Spl. Instructions: / History: COMPARISON: None. FINDINGS: Postsurgical changes of reverse shoulder arthroplasty. No periprosthetic fracture. Joint is congruent. Anterior skin [place]. Moderate degenerative changes of the acromioclavicular joint. Perihilar and basilar heterogeneous opacities and small right pleural effusion. IMPRESSION: 1. Reverse shoulder arthroplasty without evidence of hardware complication. 2. Bilateral perihilar and basilar opacities, likely edema. Small right pleural effusion. Electronically signed by: Neo Montoya MD (08/30/2020 1:49 PM) [id number]
== END ==
LOC: DXRAD 11:08
PROVIDERS: ATTEND Physician Assistant
DX: M25.511 Pain in right shoulder (principal); J90 Pleural effusion, not elsewhere classified; Z96.611 Presence of right artificial shoulder joint
CPT/HCPCS: 73030

== ENCOUNTER → 2020-09-30 | Outpatient (CLI) | payer MEDICARE, OTHER ==
--- NOTE | 2020-09-30 15:31 | RAD ---
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 No discrete central glenoid erosion or distal acromion fracture is identified. AC joint degenerative changes are seen. Right lung parenchymal opacities, possibly atelectasis or developing consolidation. IMPRESSION: 1. 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 2. Right lung parenchymal opacities incompletely included assessed on the submitted images, possibly consolidation. Electronically signed by: Gil Foy MD (09/30/2020 3:27 PM) [id number]
== END ==
LOC: DXRAD 13:01
PROVIDERS: ATTEND Physician Assistant
DX: M19.011 Primary osteoarthritis, right shoulder (principal); Z96.611 Presence of right artificial shoulder joint
CPT/HCPCS: 73030